=== PATIENT | male | born 1975 | race Two or more races ===

== ENCOUNTER 2023-08-29 14:40 | Emergency (ER) | payer MEDICAID ==
[~2023-08-29] VITALS: Ht 177.8 cm; Wt 100.0 kg
[2023-08-29 15:20] LABS: Basophils # (auto) 0 10 ^3/uL (0-0.2); Basophils % (auto) 0.8 % (0.0-2.0); Eosinophils # (auto) 0.3 10 ^3/uL (0-0.8); Eosinophils % (auto) 6.1 % (0.0-7.0); Hematocrit 44.3 % (41.0-53.0); Hemoglobin 15.3 g/dL (13.5-17.5); Lymphocytes # (auto) 2.1 10 ^3/uL (0.4-5.4); Lymphocytes % (auto) 36.6 % (10.0-50.0); Mean Corpuscular Hemoglobin 30.7 pg (28.0-32.0); Mean Corpuscular Hgb Conc. 34.5 g/dL (32.0-36.0); Mean Corpuscular Volume 89.2 fL (80.0-100.0); Monocytes # (auto) 0.5 10 ^3/uL (0-1.3); Neutrophils # (auto) 2.7 10 ^3/uL (1.6-8.6); Neutrophils % (auto) 48.5 % (37.0-80.0); Nucleated Red Blood Cells % 0.2 %; Red Blood Cells 4.96 10^6/uL (4.5-5.90); Red Cell Distribution Width 14.1 % (11.8-14.3); White Blood Cell 5.6 10^3/uL (4.4-10.8)
[2023-08-29 15:32] LABS: Alanine Aminotransferase 38 U/L (7-40); Albumin 4.9 g/dL (3.2-4.8); Alkaline Phosphatase 79 U/L (46-116); Anion Gap 8 (5-15); Aspartate Aminotransferase 17 U/L (13-40); BUN/Creatinine Ratio 16.5 (10.0-20.0); Bilirubin, Total 0.9 mg/dL (0.2-1.0); Blood Urea Nitrogen 18 mg/dL (9-23); Calcium 9.8 mg/dL (8.5-10.1); Carbon Dioxide 25 mmol/L (20-30); Chloride 109 mmol/L (98-107); Glucose 117 mg/dL (74-106); Sodium 142 mmol/L (136-145); Total Protein 7.2 g/dL (5.7-8.2)
[2023-08-29 20:06] VITALS: BP 135/83; PULSE 72; RESP 18; TEMP 98.5; O2SAT 96
== END 2023-08-29 20:08 | disposition home or self-care (01) ==
LOC: ER 14:40
DX: R07.89 Other chest pain (principal)
CPT/HCPCS: 36415; 71046; 80053; 84484; 85025; 93005

== ENCOUNTER 2025-04-16 21:27 | Inpatient (IN) | payer MEDICAID ==
[~2025-04-16] VITALS: Ht 177.8 cm; Wt 99.1 kg
[2025-04-16 21:59] LABS: Basophils # (auto) 0 10 ^3/uL (0-0.2); Basophils % (auto) 0.7 % (0.0-2.0); Eosinophils # (auto) 0.4 10 ^3/uL (0-0.8); Eosinophils % (auto) 6.5 % (0.0-7.0); Hematocrit 42.1 % (41.0-53.0); Hemoglobin 14.7 g/dL (13.5-17.5); Lymphocytes # (auto) 1.7 10 ^3/uL (0.4-5.4); Lymphocytes % (auto) 30.7 % (10.0-50.0); Mean Corpuscular Hemoglobin 30.9 pg (28.0-32.0); Mean Corpuscular Volume 88.5 fL (80.0-100.0); Monocytes # (auto) 0.5 10 ^3/uL (0-1.3); Monocytes % (auto) 8.8 % (0.0-12.0); Neutrophils % (auto) 53.3 % (37.0-80.0); Nucleated Red Blood Cells % 0.2 %; Platelet Count (auto) 196 10^3/uL (140-450); Red Blood Cells 4.76 10^6/uL (4.5-5.90); Red Cell Distribution Width 13.7 % (11.8-14.3); White Blood Cell 5.6 10^3/uL (4.4-10.8)
[2025-04-16 22:04] LABS: Sodium 141 mmol/L (136-145)
[2025-04-16 22:05] LABS: Anion Gap 7 (5-15); Carbon Dioxide 25 mmol/L (20-31); Chloride 109 mmol/L (98-107)
[2025-04-16 22:10] LABS: BUN/Creatinine Ratio 15.3 (10.0-20.0); Blood Urea Nitrogen 15 mg/dL (9-23); Glucose 98 mg/dL (74-106)
--- NOTE | 2025-04-16 22:23 | ED.PDOC ---
History of Present Illness HPI Comments 49 y/o obese M presents with 4x day history of intermittent, nonradiating, left sided chest pain. Pain worsens with movement and deep respirations. He endorses on being told on having 'tiny vessels' and a 'slow heart rate' when he was evaluated for previous episode of similar pain a year ago. No recent travel, injuries, strenuous activities, stressors, or sick contact endorsed. Patient denies having any nausea, vomiting, diarrhea, shortness of breath, or further associated symptoms. Chief Complaint: Chest Pain Time Seen by MD: 21:30 Primary Care Provider: NONE Reviewed Notes: Nurses Notes, Medications, Allergies Allergies: Coded Allergies: NO KNOWN ALLERGIES (Unverified , 08/29/23) Information Source: Patient Mode of Arrival: Ambulatory Severity: Moderate Timing: Days Duration: Intermittent Prehospital treatment: None Past Medical History Past Medical History (Other): 'slow heart rate' Surgical History: Denies all surgeries Family History Family History: Unknown Social History Smoker: Non-Smoker Alcohol: Denies ETOH Use Drugs: Denies Drug Use Lives In: Home All Other Systems: Reviewed and Negative (Comprehensive systems review obtained and negative except for what is stated in the HPI.) Physical Exam General Appearance: No Apparent Distress, Obese HEENT: Normal ENT Inspection, Pharynx Normal, TMs Normal Neck: Full Range of Motion, Non-Tender, Normal, Normal Inspection Respiratory: Chest Non-Tender, Lungs Clear, No Accessory Muscle Use, No Respiratory Distress, Normal Breath Sounds Cardiovascular: No Edema, No JVD, No Murmur, No Gallop, Normal Peripheral Pulses, Regular Rate/Rhythm Breast Exam: Deferred Gastrointestinal: No Organomegaly, Non Tender, No Pulsatile Mass, Normal Bowel Sounds, Soft Genitalia: Deferred Pelvic: Deferred Rectal: Deferred Extremities: No calf tenderness, Normal capillary refill, Normal inspection, Normal range of motion, Non-tender, No pedal edema Musculoskeletal : Apperance: Normal Neurologic: Alert, 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 Was a procedure done?: No EKG EKG : Oden: Normal Cardiac Rhythm: NSR Block: None Hypertrophy: None ST: Normal Differential Dx Considerations may include: MS, PE, ACS, URI, PNA, anxiety, angina, costochondritis, gastritis, pericarditis, musculoskeletal pain, among others X-Ray, Labs, Meds, VS Vital Signs Date Time Temp Pulse Resp B/P (MAP) Pulse Ox O2 Delivery O2 Flow Rate FiO2 04/16/25 21:33 98.8 71 16 137/82 (100) 97 98.8 Lab Test 04/16/25 22:16 04/16/25 21:36 Range/Units Troponin I High Sensitivity 5 6 </=54 ng/L White Blood Count 5.6 4.4-10.8 10^3/uL Red Blood Count 4.76 4.5-5.90 10^6/uL Hemoglobin 14.7 13.5-17.5 g/dL Hematocrit 42.1 41.0-53.0 % Mean Corpuscular Volume 88.5 80.0-100.0 fL Mean Corpuscular Hemoglobin 30.9 28.0-32.0 pg Mean Corpuscular Hemoglobin Concent 35.0 32.0-36.0 g/dL Red Cell Distribution Width 13.7 11.8-14.3 % Platelet Count 196 140-450 10^3/uL Mean Platelet Volume 7.8 6.9-10.8 fL Neutrophils (%) (Auto) 53.3 37.0-80.0 % Lymphocytes (%) (Auto) 30.7 10.0-50.0 % Monocytes (%) (Auto) 8.8 0.0-12.0 % Eosinophils (%) (Auto) 6.5 0.0-7.0 % Basophils (%) (Auto) 0.7 0.0-2.0 % Neutrophils # (Auto) 3.0 1.6-8.6 10 ^3/uL Lymphocytes # (Auto) 1.7 0.4-5.4 10 ^3/uL Monocytes # (Auto) 0.5 0-1.3 10 ^3/uL Eosinophils # (Auto) 0.4 0-0.8 10 ^3/uL Basophils # (Auto) 0 0-0.2 10 ^3/uL Nucleated Red Blood Cells 0.2 % Sodium Level 141 136-145 mmol/L Potassium Level 4.0 3.5-5.1 mmol/L Chloride Level 109 H 98-107 mmol/L Carbon Dioxide Level 25 20-31 mmol/L Anion Gap 7 5-15 Blood Urea Nitrogen 15 9-23 mg/dL Creatinine 0.98 0.700-1.30 mg/dL Glomerular Filtration Rate Calc 93 >90 mL/min BUN/Creatinine Ratio 15.3 10.0-20.0 Serum Glucose 98 74-106 mg/dL Calcium Level 10.0 8.7-10.4 mg/dL Time of 1ST Reevaluation: 22:00 Reevaluation 1ST: Unchanged Patient Education/Counseling: Diagnosis, Treatment, Need For Follow Up Family Education/Counseling: No Family Present Additional Information Previous visits reviewed: August 29, 2023 encounter for chest pain The following tests were ordered, and results were reviewed by me: CXR, EKG, CBC, BMP, UA, Troponin Additional Information was gathered from interviewing the following independent historians: N/A I reviewed and agreed with the following test results read by other providers: CXR I discussed treatment and results with medical personnel and: patient Departure 1 Departure Time of Disposition: 23:57 (Patient presented with chest pain that was concerning for possible STEMI, ACS, PE, Pneumonia, Muscle Strain, COPD, Dissection. Data: 1. I ordered and reviewed the result of at least 3 labs including a CBC, BMP, and Troponin. 2. I independently interpreted the following tests: EKG which shows normal sinus and Chest X-ray which shows benign chest.Risk:This patient has a high risk of morbidity due to further diagnostic testing or treatment and may suffer from an acute cardiac or respiratory disorder. Workup reveals concern for ACS and patient should be admitted for further workup and possible expert consultation. ) Impression: Primary Impression: Acute chest pain Disposition: 09 ADMITTED INPATIENT Admit to: Med Surg Condition: Serious Critical Care Note Critical Care Time?: Yes Critical care comment: Acute chest pain Authorized and Performed by: Ese Grey MD Total critical care time: Approximately 38 minutes Due to a high probability of clinically significant, life threatening deterioration, the patient required my highest level of preparedness to intervene emergently and I personally spent this critical care time directly and personally managing the patient. This critical care time included obtaining a history; examining the patient; pulse oximetry; ordering and review of studies; arranging urgent treatment with development of a management plan; evaluation of patient's response to treatment; frequent reassessment; and, discussions with other providers. This critical care time was performed to assess and manage the high probability of imminent, life-threatening deterioration that could result in multi-organ failure. It was exclusive of separately billable procedures and treating other patients and teaching time. Please see my other sections and the rest of the note for further information on patient assessment and treatment. Stability Stability form required: No Heart Score Heart Score: Heart Score Response (Comments) Value History Moderate Suspicious 1 EKG Repolarization Disturb 1 Age 45-64 1 Risk Factors 1 or 2 risk factors 1 Troponin Normal limit 0 Total 4 I personally scribed for ESE GREY MD ([email or web address]) on 04/16/25 at 22:23. Electronically submitted by Eliecer Gupta ([email or web address]). ESE GREY MD Apr 16, 2025 22:23
[2025-04-17] VITALS (7 sets, daily range): BP systolic 111–126; BP diastolic 65–85; PULSE 52–79; RESP 12–18; TEMP 97.3–98.4; O2SAT 96–98
--- NOTE | 2025-04-17 00:18 | DVH ---
CHEST RADIOGRAPH Indication: chest pain Technique: Single frontal view of the chest was obtained Comparison: None FINDINGS: Lines and Tubes: None Lungs: Clear Pleura: No effusion. No pneumothorax. Cardiomediastinal contours: Unremarkable Bones: Unremarkable IMPRESSION: Clear lungs.
[2025-04-17] MEDS ORDERED: ACETAMINOPHEN 325 MG TAB PO PRN (01:00)
--- NOTE | 2025-04-17 01:18 | DVHHPRES ---
History of Present Illness Resident Creating Document: FRANK MA History of Present Illness This is a 49-year-old male with past medical history of hypothyroidism (on levothyroxine 88 mcg daily), dyslipidemia and history of bradycardia, who presented to the ED with chief complaint of left-sided chest pain. The patient states that three days ago, he started experiencing left-sided chest pain that was described as a sharp pain rated as a 6/10 on the pain scale localized in the left side of the thorax with no specific pattern of radiation. The patient also reported that pain got exacerbated with deep palpation, changes in position especially moving or lying down in the left side and with deep breathing. The patient also reported associated mild shortness of breath but not significant at this time. Patient also states that the pain is constant but varies in intensity during time over the day. The patient denies significant shortness of breath, fever/chills, abdominal tenderness, lower extremity swelling or any other symptoms at this time. Initial labs CBC and BNP were grossly unremarkable and troponins came back negative. EKG showed sinus rhythm with no ST segment elevation or depression. Patient states that these left-sided chest pain has been going on and off for several months but got worse recently prompting this visit. We will admit the patient for further assessment and management of acute chest pain and we will perform echocardiogram. The patient also reported recent contact with family member with flu-like symptoms. Past medical history: Hypothyroidism, dyslipidemia Home medications: Aspirin 81 mg daily, levothyroxine 88 mcg daily Surgical history: Denies Social history: Denies drug consumption, alcohol or smoking. Lives with the family Cardiovascular: hyperipidemia Endocrine: Hypothyroidism Past Surgical History: None Family History: None Smoke: No ALCOHOL: none Drugs: None Lives: with Family Domestic Violence: Neg Review of Systems Constitutional: No: Fever, Chills, Sweats, Weakness, Malaise, Other Eyes: No: Pain, Vision change, Conjunctivae inflammation, Eyelid inflammation, Other, Redness ENT: No: Ear pain, Ear discharge, Nose pain, Nose discharge, Nose congestion, Mouth pain, Mouth swelling, Throat pain, Throat swelling, Other Respiratory: Shortness of breath (very mild not requiring O2); No: Cough, Dry, SOB with excertion, Wheezing, Hemoptysis, Pleuritic Pain, Sputum, Wheezing, Other Cardiovascular: Chest Pain; No: Palpitations, Orthopnea, Paroxysmal Noc. Dyspnea, Edema, Lt Headedness, Other Gastrointestinal: No: Nausea, Vomiting, Abdominal Pain, Diarrhea, Constipation, Melena, Hematochezia, Other Genitourinary: No Dysuria, No Frequency, No Incontinence, No Hematuria, No Retention, No Other Musculoskeletal: No: other, neck pain, shoulder pain, arm pain, back pain, hand pain, leg pain, foot pain Skin: No: Rash, Lesions, Jaundice, Bruising, Other Neurological: No: Weakness, Numbness, Incoordination, Change in speech, Confusion, Seizures, Other Allergies: Coded Allergies: NO KNOWN ALLERGIES (Unverified , 08/29/23) Medications Current Medications Medications Dose Ordered Sig/Funmilayo Route Start Time Stop Time Status Last Admin Dose Admin Acetaminophen 650 mg Q6HP PRN PO 04/17/25 01:00 Enoxaparin Sodium 40 mg DAILY SC 04/17/25 10:00 Exam Vital Signs Vital Signs Date Time Temp Pulse Resp B/P (MAP) Pulse Ox O2 Delivery O2 Flow Rate FiO2 04/16/25 21:33 98.8 71 16 137/82 (100) 97 98.8 General Appearance: Alert, Oriented X3, Cooperative, No acute distress HEENT: Atraumatic, PERRLA, EOMI, Mucous membr. moist/pink Respiratory: Clear to auscultation, Normal air movement Cardiovascular: Regular rate, Normal S1, Normal S2, No murmurs Abdominal: Normal bowel sounds, Soft, No tenderness, No hepatospenomegaly Extremities: No clubbing, No cyanosis, No edema, Normal pulses, No tenderness/swelling Skin: No rashes, No breakdown, No significant lesion Neuro: Normal gait, Normal speech, Strength at 5/5 X4 ext, Normal tone, S ensation intact, Cranial nerves 3-12 NL, Reflexes 2+ Psych/Mental Status: Mental status NL, Mood NL Labs/Xrays Labs Test 04/16/25 22:16 04/16/25 21:36 Range/Units Troponin I High Sensitivity 5 </=54 ng/L White Blood Count 5.6 4.4-10.8 10^3/uL Red Blood Count 4.76 4.5-5.90 10^6/uL Hemoglobin 14.7 13.5-17.5 g/dL Hematocrit 42.1 41.0-53.0 % Mean Corpuscular Volume 88.5 80.0-100.0 fL Mean Corpuscular Hemoglobin 30.9 28.0-32.0 pg Mean Corpuscular Hemoglobin Concent 35.0 32.0-36.0 g/dL Red Cell Distribution Width 13.7 11.8-14.3 % Platelet Count 196 140-450 10^3/uL Mean Platelet Volume 7.8 6.9-10.8 fL Neutrophils (%) (Auto) 53.3 37.0-80.0 % Lymphocytes (%) (Auto) 30.7 10.0-50.0 % Monocytes (%) (Auto) 8.8 0.0-12.0 % Eosinophils (%) (Auto) 6.5 0.0-7.0 % Basophils (%) (Auto) 0.7 0.0-2.0 % Neutrophils # (Auto) 3.0 1.6-8.6 10 ^3/uL Lymphocytes # (Auto) 1.7 0.4-5.4 10 ^3/uL Monocytes # (Auto) 0.5 0-1.3 10 ^3/uL Eosinophils # (Auto) 0.4 0-0.8 10 ^3/uL Basophils # (Auto) 0 0-0.2 10 ^3/uL Nucleated Red Blood Cells 0.2 % Sodium Level 141 136-145 mmol/L Potassium Level 4.0 3.5-5.1 mmol/L Chloride Level 109 H 98-107 mmol/L Carbon Dioxide Level 25 20-31 mmol/L Anion Gap 7 5-15 Blood Urea Nitrogen 15 9-23 mg/dL Creatinine 0.98 0.700-1.30 mg/dL Glomerular Filtration Rate Calc 93 >90 mL/min BUN/Creatinine Ratio 15.3 10.0-20.0 Serum Glucose 98 74-106 mg/dL Calcium Level 10.0 8.7-10.4 mg/dL Assessment/Plan Assessment/Plan Assessment/plan Acute chest pain, R/O ACS Acute chest pain, possible musculoskeletal or viral pericarditis? Acute respiratory distress likely due to above Hypothyroidism Dyslipidemia Plan -EKG was showing sinus rhythm with no ST segment elevation or depression. Troponins were negative. -Chest x ray was grossly clear with no evidence of pleural effusions or consolidations. -ordered echocardiogram -Start colchicine 0.6mg daily -Ordered lipid panel, UA, UDS, TSH and FT4 -Restart levothyroxine 88mcg daily Goals of care discussed with the patient at bedside for > 35min, FULL CODE Plan discussed with Dr. Kohler Plan discussed with: Patient My Orders Orders - FRANK MA Procedure Category Date Status Time Admit ADMIT 04/17/25 Transmitted 00:53 Code Status CODE 04/17/25 Transmitted 00:53 Vital Signs [facility] 04/17/25 In Process 00:53 Review Orders With [facility] 04/17/25 In Process Adm. 00:53 Encourage Activity As [facility] 04/17/25 In Process Tolerate 00:53 Regular Diet DIET 04/17/25 Transmitted Breakfast Acetaminophen Tablet [facility] 04/17/25 In Process (Tylenol Tablet) 01:00 Notify Of Changes [facility] 04/17/25 In Process From Base 00:53 Advance Directive [facility] 04/17/25 In Process 00:53 Basic Metabolic Panel LAB 04/18/25 Verified 04:00 Urinalysis LAB 04/17/25 Logged 00:53 Complete Blood Count LAB 04/18/25 Verified 04:00 Lipid Panel LAB 04/17/25 Logged 00:53 Patient Condition ORDERS 04/17/25 Transmitted 00:53 Allergies [facility] 04/17/25 In Process 00:53 Drug Screen LAB 04/17/25 Logged 00:53 Hemoglobin A1c LAB 04/17/25 Logged 00:53 Enoxaparin Sodium PHA 04/17/25 In Process (Lovenox) 10:00 D-Dimer LAB 04/17/25 Logged 00:57 Comprehensive LAB 04/17/25 Logged Metabolic Panel 04:00 Complete Blood Count LAB 04/17/25 Logged 04:58 Echo 2d Mode Cardiac US 04/17/25 Logged DOP 00:59 Date of Service: Apr 16, 2025 Billing Provider: CARINA KOHLER MD Common Visit Codes: [id number] INP/OBS CARE (HIGH) FRANK MA RESIDENT Apr 17, 2025 01:18 CARINA KOHLER MD Apr 17, 2025 17:38
[2025-04-17 01:46] LABS: HDL Cholesterol 42 mg/dL (40-59)
[2025-04-17 01:54] LABS: Cholesterol 203 mg/dL (< 200); LDL Cholesterol 141 mg/dL (< 100); Triglycerides 171 mg/dL (< 150)
[2025-04-17] MEDS: COLCHICINE 0.6 MG CAP PO ONE (03:15)
[2025-04-17] MEDS: SODIUM CHLORIDE 0.9% 500 ML IV ONE (03:16)
[2025-04-17 04:00] LABS: COVID19 ANTIGEN SOFIA FIA NEGATIVE (NEGATIVE); Rapid Influenza A Negative (Negative); Rapid Influenza B Negative (Negative)
[2025-04-17 04:15] LABS: Basophils # (auto) 0 10 ^3/uL (0-0.2); Basophils % (auto) 0.8 % (0.0-2.0); Eosinophils # (auto) 0.3 10 ^3/uL (0-0.8); Eosinophils % (auto) 7.5 % (0.0-7.0); Hematocrit 41.6 % (41.0-53.0); Hemoglobin 14.6 g/dL (13.5-17.5); Lymphocytes # (auto) 1.5 10 ^3/uL (0.4-5.4); Lymphocytes % (auto) 32.1 % (10.0-50.0); Mean Corpuscular Hemoglobin 31.1 pg (28.0-32.0); Mean Corpuscular Volume 88.8 fL (80.0-100.0); Monocytes # (auto) 0.4 10 ^3/uL (0-1.3); Monocytes % (auto) 7.9 % (0.0-12.0); Neutrophils # (auto) 2.4 10 ^3/uL (1.6-8.6); Neutrophils % (auto) 51.7 % (37.0-80.0); Platelet Count (auto) 192 10^3/uL (140-450); Red Blood Cells 4.69 10^6/uL (4.5-5.90); Red Cell Distribution Width 13.5 % (11.8-14.3); White Blood Cell 4.6 10^3/uL (4.4-10.8)
[2025-04-17 04:22] LABS: Alanine Aminotransferase 24 U/L (7-40); Alkaline Phosphatase 59 U/L (46-116); Anion Gap 8 (5-15); Aspartate Aminotransferase 16 U/L (13-40); BUN/Creatinine Ratio 13.1 (10.0-20.0); Bilirubin, Total 0.8 mg/dL (0.2-1.0); Blood Urea Nitrogen 13 mg/dL (9-23); Calcium 9.4 mg/dL (8.7-10.4); Carbon Dioxide 27 mmol/L (20-31); Chloride 105 mmol/L (98-107); Glucose 100 mg/dL (74-106); Potassium 4.1 mmol/L (3.5-5.1); Sodium 140 mmol/L (136-145); Total Protein 7.1 g/dL (5.7-8.2)
[2025-04-17 04:26] LABS: Albumin 4.9 g/dL (3.2-4.8)
[2025-04-17] MEDS: LEVOTHYROXINE SODIUM 88 MCG TAB PO SCH (05:37)
[2025-04-17 08:08] LABS: Erythrocyte Sedimentation Rate 8 mm/hr (0-20)
[2025-04-17] MEDS: ENOXAPARIN SOD 40 MG/0.4 ML SYRINGE SC SCH (10:00)
--- NOTE | 2025-04-17 15:25 | DVHPNRES ---
Progress Note Date Seen: Apr 17, 2025 Resident Creating Document: CATHRYN BAKER RESIDENT Medical Necessity Reason Pt with a Central, PICC or Fol: No Subjective Review of Systems This is a 49-year-old male with past medical history of hypothyroidism (on levothyroxine 88 mcg daily), dyslipidemia and history of bradycardia, who presented to the ED with chief complaint of left-sided chest pain. The patient states that three days ago, he started experiencing left-sided chest pain that was described as a sharp pain rated as a 6/10 on the pain scale localized in the left side of the thorax with no specific pattern of radiation. The patient also reported that pain got exacerbated with deep palpation, changes in position especially moving or lying down in the left side and with deep breathing. The patient also reported associated mild shortness of breath but not significant at this time. Patient also states that the pain is constant but varies in intensity during time over the day. The patient denies significant shortness of breath, fever/chills, abdominal tenderness, lower extremity swelling or any other symptoms at this time. Initial labs CBC and BNP were grossly unremarkable and troponins came back negative. EKG showed sinus rhythm with no ST segment elevation or depression. Patient states that these left-sided chest pain has been going on and off for several months but got worse recently prompting this visit. We will admit the patient for further assessment and management of acute chest pain and we will perform echocardiogram. The patient also reported recent contact with family member with flu-like symptoms. Past medical history: Hypothyroidism, dyslipidemia Home medications: Aspirin 81 mg daily, levothyroxine 88 mcg daily Surgical history: Denies Social history: Denies drug consumption, alcohol or smoking. Lives with the family Patient seen and examined at the bedside. Palpable chest tenderness, echocardiogram pending. Objective vital signs Vital Sign Date Time Temp Pulse Resp B/P (MAP) Pulse Ox O2 Delivery O2 Flow Rate FiO2 04/17/25 09:00 97.3 55 12 111/71 (84) 98 97.3 04/17/25 08:25 Room Air* 0 21 Total Intake and Output 04/16/25 04/16/25 04/17/25 15:00 23:00 07:00 Intake Total 500 ml Balance 500 ml medications Current Medications Medications Dose Ordered Sig/Funmilayo Route Start Time Stop Time Status Last Admin Dose Admin Acetaminophen 650 mg Q6HP PRN PO 04/17/25 01:00 Enoxaparin Sodium 40 mg DAILY SC 04/17/25 10:00 Levothyroxine Sodium 88 mcg DAILY PO 04/17/25 06:00 04/17/25 10:56 88 MCG Examination Patient lying in bed, in no acute distress General: Obese, afebrile, palor, mucosae are moist Cardiovascular: Regular S1 and S2. No murmurs, gallops or rubs. No JVD elevation. No pedal edema Respiratory: Normal B/L air entry on room air. Clear lung sounds on auscultation Abdomen: Soft, nontender, nondistended, normoactive bowel sounds, no rebound tenderness, no organomegaly, no masses Genitourinary: Deferred MSK/skin: Mobilizes 4 limbs. Skin is dry and warm Neurological: No motor, no sensitive deficits, normal speech. Pupils are isocoric and reactive. Psych/Mental Status: A/Ox3 laboratory and microbiology Laboratory Tests 04/17/25 03:55 Test 04/17/25 03:55 Range/Units Serum Glucose 100 74-106 mg/dL Labs and/or images reviewed: Labs reviewed by me, Image(s) reviewed by me Problem List/Assessment/Plan Problem List/Assessment/Plan Acute chest pain, R/O ACS Acute chest pain, possible musculoskeletal or viral pericarditis? Acute respiratory distress likely due to above Hypothyroidism Dyslipidemia Plan -6 minute walk test pending -on telemetry unit -ESR, CRP WNL -EKG was showing sinus rhythm with no ST segment elevation or depression. Troponins were negative. -Chest x ray was grossly clear with no evidence of pleural effusions or consolidations. -echocardiogram pending -1 dose of colchicine 0.6mg administered by admitting -Ordered lipid panel, UA, UDS, TSH and FT4 -Restart levothyroxine 88mcg daily -10 year ASCVD score less than 5% Goals of care discussed with the patient at bedside for > 35min, FULL CODE Plan discussed with patient in which all questions have been answered Case discussed with Dr. Valerio. Echocardiogram is pending Plan discussed with: Patient My Orders My Orders Orders - CATHRYN BAKER Procedure Category Date Status Time Transfer Orders XFER 04/17/25 Transmitted 11:04 Communication Order ORDERS 04/17/25 Transmitted 11:09 CATHRYN BAKER Apr 17, 2025 15:25
[2025-04-18] VITALS (7 sets, daily range): BP systolic 112–130; BP diastolic 71–84; PULSE 49–65; RESP 14–17; TEMP 97–98.8; O2SAT 97–100
[2025-04-18 06:37] LABS: Chloride 105 mmol/L (98-107); Potassium 4.3 mmol/L (3.5-5.1); Sodium 141 mmol/L (136-145)
[2025-04-18 06:38] LABS: Anion Gap 9 (5-15); Calcium 9.6 mg/dL (8.7-10.4); Carbon Dioxide 27 mmol/L (20-31)
[2025-04-18 06:43] LABS: Blood Urea Nitrogen 14 mg/dL (9-23); Glucose 97 mg/dL (74-106)
[2025-04-18 07:17] LABS: Basophils # (auto) 0 10 ^3/uL (0-0.2); Basophils % (auto) 0.7 % (0.0-2.0); Eosinophils # (auto) 0.3 10 ^3/uL (0-0.8); Eosinophils % (auto) 7.4 % (0.0-7.0); Hematocrit 44.3 % (41.0-53.0); Hemoglobin 15.2 g/dL (13.5-17.5); Lymphocytes # (auto) 1.5 10 ^3/uL (0.4-5.4); Lymphocytes % (auto) 32.9 % (10.0-50.0); Mean Corpuscular Hemoglobin 30.7 pg (28.0-32.0); Mean Corpuscular Hgb Conc. 34.3 g/dL (32.0-36.0); Mean Corpuscular Volume 89.5 fL (80.0-100.0); Monocytes # (auto) 0.4 10 ^3/uL (0-1.3); Monocytes % (auto) 9.1 % (0.0-12.0); Neutrophils # (auto) 2.3 10 ^3/uL (1.6-8.6); Neutrophils % (auto) 49.9 % (37.0-80.0); Nucleated Red Blood Cells % 0.1 %; Platelet Count (auto) 196 10^3/uL (140-450); Red Blood Cells 4.95 10^6/uL (4.5-5.90); Red Cell Distribution Width 13.4 % (11.8-14.3); White Blood Cell 4.6 10^3/uL (4.4-10.8)
--- NOTE | 2025-04-18 13:00 | DVHSR ---
APPROVED REPORT EXAM: Two-dimensional and M-mode echocardiogram with Doppler and color Doppler. Blood Pressure: 120/85 mmHg INDICATION R/O cardiomyopathy and eval LVEF RISK FACTORS Height: 5'10", Weight: 218 DIMENSIONS LVDd5.0 (3.8-5.7cm)LA (2D)3.6 (1.9-4.0cm)Aortic Root3.8 (2.0-3.7cm) LVDs2.9 (2.5-4.0cm)LA (MM) (1.9-4.0cm)Aortic Cusp Exc2.1 (1.5-2.0cm) EF (%) 65.0 (55-70%)Rt. Atrium3.6 (1.9-4.0cm)Asc. Aorta cm IVSd1.0 (0.7-1.1cm)RV (D)3.8 (1.8-2.4cm) PWd1.2 (0.7-1.1cm) Mitral Valve MitralMitral Stenosis E wave0.55m/sMV Mean GR.mmHg A wave0.48m/sMV Peak GR.mmHg E/A ratio1.12D MVAcm2 DECEL [id number] 1/2 Timems Aortic Valve Aortic ValveAortic Stenosis V11.05m/Gustavo Mean GR.4mmHg V21.42m/Gustavo Peak GR.8mmHg LVOT Diameter2.3 (1.8-2.4cm)Doppler AVA3.07cm2 Pulmonic Valve V21.22m/s Tricuspid Valve TR Velocity2.82m/s [id number] Conclusion lvef 65% by visual estimate normal rv function left atrium enlarged mild no severe valve abnormaliteis noted
--- NOTE | 2025-04-18 14:33 | DVHDSRES ---
Discharge Summary Date of Admission Resident Creating Document: CATHRYN BAKER RESIDENT Apr 17, 2025 at 00:53 Date of Discharge: Apr 18, 2025 Labs/Diagnostic Data: Laboratory Results Test 04/18/25 05:36 04/17/25 03:55 04/17/25 03:06 04/17/25 01:11 White Blood Count 4.6 10^3/uL (4.4-10.8) Red Blood Count 4.95 10^6/uL (4.5-5.90) Hemoglobin 15.2 g/dL (13.5-17.5) Hematocrit 44.3 % (41.0-53.0) Mean Corpuscular Volume 89.5 fL (80.0-100.0) Mean Corpuscular Hemoglobin 30.7 pg (28.0-32.0) Mean Corpuscular Hemoglobin Concent 34.3 g/dL (32.0-36.0) Red Cell Distribution Width 13.4 % (11.8-14.3) Platelet Count 196 10^3/uL (140-450) Mean Platelet Volume 8.1 fL (6.9-10.8) Neutrophils (%) (Auto) 49.9 % (37.0-80.0) Lymphocytes (%) (Auto) 32.9 % (10.0-50.0) Monocytes (%) (Auto) 9.1 % (0.0-12.0) Eosinophils (%) (Auto) 7.4 % (0.0-7.0) Basophils (%) (Auto) 0.7 % (0.0-2.0) Neutrophils # (Auto) 2.3 10 ^3/uL (1.6-8.6) Lymphocytes # (Auto) 1.5 10 ^3/uL (0.4-5.4) Monocytes # (Auto) 0.4 10 ^3/uL (0-1.3) Eosinophils # (Auto) 0.3 10 ^3/uL (0-0.8) Basophils # (Auto) 0 10 ^3/uL (0-0.2) Nucleated Red Blood Cells 0.1 % Sodium Level 141 mmol/L (136-145) Potassium Level 4.3 mmol/L (3.5-5.1) Chloride Level 105 mmol/L (98-107) Carbon Dioxide Level 27 mmol/L (20-31) Anion Gap 9 (5-15) Blood Urea Nitrogen 14 mg/dL (9-23) Creatinine 1.00 mg/dL (0.700-1.30) Glomerular Filtration Rate Calc 91 mL/min (>90) BUN/Creatinine Ratio 14.0 (10.0-20.0) Serum Glucose 97 mg/dL (74-106) Calcium Level 9.6 mg/dL (8.7-10.4) Erythrocyte Sedimentation Rate 8 mm/hr (0-20) Total Bilirubin 0.8 mg/dL (0.2-1.0) Aspartate Amino Transferase (AST) 16 U/L (13-40) Alanine Aminotransferase (ALT) 24 U/L (7-40) Alkaline Phosphatase 59 U/L (46-116) C-Reactive Protein High Sensitivity 0.32 mg/dL (<1.0) Total Protein 7.1 g/dL (5.7-8.2) Albumin 4.9 g/dL (3.2-4.8) Influenza Type A Antigen Negative (Negative) Influenza Type B Antigen Negative (Negative) SARS-CoV-2 Antigen (Rapid) Negative (NEGATIVE) D-Dimer, Quantitative 0.56 mg/L FEU (0.0-0.49) Hemoglobin A1c 5.6 % A1C (<5.7) Troponin I High Sensitivity 6 ng/L (</=54) Triglycerides Level 171 mg/dL (< 150) Cholesterol Level 203 mg/dL (< 200) LDL Cholesterol 141 mg/dL (< 100) HDL Cholesterol 42 mg/dL (40-59) Thyroid Stimulating Hormone (TSH) 3.98 uIU/mL (0.55-4.78) Free Thyroxine (T4) Calculated 1.27 ng/dL (0.89-1.76) Other Laboratory Tests 04/18/25 05:36 Brief Hx & Hospital Course: This is a 49-year-old male with past medical history of hypothyroidism (on levothyroxine 88 mcg daily), dyslipidemia and history of bradycardia, who presented to the ED with chief complaint of left-sided chest pain. The patient states that three days ago, he started experiencing left-sided chest pain that was described as a sharp pain rated as a 6/10 on the pain scale localized in the left side of the thorax with no specific pattern of radiation. The patient also reported that pain got exacerbated with deep palpation, changes in position especially moving or lying down in the left side and with deep breathing. The patient also reported associated mild shortness of breath but not significant at this time. Patient also states that the pain is constant but varies in intensity during time over the day. The patient denies significant shortness of breath, fever/chills, abdominal tenderness, lower extremity swelling or any other symptoms at this time. Initial labs CBC and BNP were grossly unremarkable and troponins came back negative. EKG showed sinus rhythm with no ST segment elevation or depression. Patient states that these left-sided chest pain has been going on and off for several months but got worse recently prompting this visit. We will admit the patient for further assessment and management of acute chest pain and we will perform echocardiogram. The patient also reported recent contact with family member with flu-like symptoms. Past medical history: Hypothyroidism, dyslipidemia Home medications: Aspirin 81 mg daily, levothyroxine 88 mcg daily Surgical history: Denies Social history: Denies drug consumption, alcohol or smoking. Lives with the family During the hospitalization, EKG completed, shows normal sinus rhythm. Patient was admitted to telemetry unit. No events monitored on telemetry other than sinus bradycardia which was asymptomatic. ESR CRP was WNL. Chest x-ray showed no evidence of pleural effusion. 6 minute walk test was completed , patient ambulated over 100 ft, heart rate maintained between 70-90, O2 saturation above 95%. No signs of distress noted. Echocardiogram completed which showed LVEF 65% by visual estimate count normal RV function, LA enlarged mild, no severe valvular abnormalities noted. Lipid panel was completed, patient's 10 year ASCVD score was less than 5% therefore no statins were prescribed on discharge. We resumed patient's home medication levothyroxine 88 mcg daily. 04/18/2025-patient is hemodynamically stable, no acute complaints therefore he has been discharged home with the following instructions: Follow up with primary care physician within 7 days Follow up with discharge clinic appointment within 7 days Patient agreed with the discharge planning. Operations or Procedures ORDERING PHYSICIAN: FRANK MA RESIDENT PROCEDURE(s): [facility] - ECHO 2D MODE CARDIAC DOP REASON: R/O cardiomyopathy and eval LVEF ORDER NUMBER(s): [id number], ACCESSION NUMBER(s): [id number] APPROVED REPORT EXAM: Two-dimensional and M-mode echocardiogram with Doppler and color Doppler. Blood Pressure: 120/85 mmHg INDICATION R/O cardiomyopathy and eval LVEF RISK FACTORS Height: 5'10", Weight: 218 DIMENSIONS LVDd 5.0 (3.8-5.7cm) LA (2D) 3.6 (1.9-4.0cm) Aortic Root 3.8 (2.0- 3.7cm) LVDs 2.9 (2.5-4.0cm) LA (MM) (1.9-4.0cm) Aortic Cusp Exc 2.1 (1.5- 2.0cm) EF (%) 65.0 (55-70%) Rt. Atrium 3.6 (1.9-4.0cm) Asc. Aorta cm IVSd 1.0 (0.7-1.1cm) RV (D) 3.8 (1.8-2.4cm) PWd 1.2 (0.7-1.1cm) Mitral Valve Mitral Mitral Stenosis E wave 0.55m/s MV Mean GR. mmHg A wave 0.48m/s MV Peak GR. mmHg E/A ratio 1.1 2D MVA cm2 DECEL Time 297ms PRESS 1/2 Time ms Aortic Valve Aortic Valve Aortic Stenosis V1 1.05m/s AO Mean GR. 4mmHg V2 1.42m/s AO Peak GR. 8mmHg LVOT Diameter 2.3 (1.8-2.4cm) Doppler DAYA 3.07cm2 Pulmonic Valve V2 1.22m/s Tricuspid Valve TR Velocity 2.82m/s RVSP 45mmHg Conclusion lvef 65% by visual estimate normal rv function left atrium enlarged mild no severe valve abnormaliteis noted SIGNED BY: JERI KATHLEEN MD SIGNED DATE/TIME: 04/18/25 1300 CC: Condition at Discharge: Stable Final Diagnosis/Problems List Acute chest pain, Ruled out ACS Acute chest pain, possible musculoskeletal Acute respiratory distress likely due to above Hypothyroidism Dyslipidemia Discharge Disposition: Home Discharge Instruct/Medications Diet: Cardiac 2g Na,low cholest Activity: Light activity Follow Up/Referral: Follow up with primary care physician within 7 days Follow up with discharge clinic appointment within 7 days Discharge Statement: "Patient was advised to return to the ER or call 911 if any headaches, dizziness, shortness of breath, chest pain, abdominal pain, bleeding, fevers, or worsening of medical condition. Patient was counseled about treatment plan, medications, possible side effects, patientverbalized understanding. All questions were answered to the best of my ability. This discharge took greater then 30 minutes in planning, reviewing documentation, counseling the patient, and discussing with other team members." ASSESSMENT ASSESSMENT Assessment Acute chest pain, Ruled out ACS Acute chest pain, possible musculoskeletal Acute respiratory distress likely due to above Hypothyroidism Dyslipidemia CATHRYN BAKER RESIDENT Apr 18, 2025 14:33
--- NOTE | 2025-04-19 07:05 | ECG ---
[facility] Test Date: 2025-04-16 Test Time: 21:33:12 Pat Name: WAGNER RAMIREZ Department: ER Room: 0295T B Gender: M [employer]: ER : 1975 Requested By: ESE GAO Order Number: [id number] Reading MD: Chris Castillo Measurements Intervals [place] Rate: 61 P: 48 TX: 180 QRS: 34 QRSD: 107 T: 53 QT: 396 QTc: 399 Interpretive Statements Sinus rhythm RSR' in V1 or V2, probably normal variant Electronically Signed On 04-19-2025 9:34:13 PDT by Chris Castillo Please click the below link to view image of tracing.
== END 2025-04-18 16:00 | disposition home or self-care (01) | DRG 203 ==
LOC: ER 21:34 → OVERFLOW 04-17 00:53 → WEST WING 04-18 01:21 → TELE-WESTW 04-18 01:22
PROVIDERS: ADMIT Student in an Organized Health Care Education/Training Program; ATTEND Emergency Medicine
DX: R07.89 Other chest pain (principal); I30.1 Infective pericarditis; E03.9 Hypothyroidism, unspecified; E66.9 Obesity, unspecified; E78.5 Hyperlipidemia, unspecified; Z20.822 Contact with and (suspected) exposure to COVID-19; R06.03 Acute respiratory distress; R00.1 Bradycardia, unspecified; Z68.31 Body mass index [BMI] 31.0-31.9, adult
CPT/HCPCS: 36415; 71045; 80048; 80053; 80061; 83036; 84439; 84443; 84484; 85025; 85379; 85652; 86141; 87426; 87804; 93005; 93306; 99291; G0378